=== PATIENT | male | born 1980 | race Caucasian/White ===

== ENCOUNTER 2019-08-11 22:27 | Inpatient (IN) | payer SELFPAY ==
[2019-08-12 00:48] LABS: #Eosinphils 0.5 thou/uL (0.0-0.7); #Lymphocytes 2.1 thou/uL (1.20-3.40); #Monocytes 0.7 thou/uL (0.11-0.59); #Neutrophils 5.4 thou/uL (1.40-6.50); %Basophils 0.3 % (0.0-1.0); %Eosinophils 5.8 % (0.0-10.0); %Monocytes 8.1 % (0.0-10.0); %Neutrophils 61.7 % (42.0-75.0); Hemoglobin 13.5 g/dL (14.0-18.0); Mean Corpuscular HGB CONC 34.8 g/dL (32.0-36.0); Mean Corpuscular Hemoglobin 30.4 pg (27.0-31.0); Mean Corpuscular Volume 87.3 fL (78.0-98.0); Mean Platelet Volume 6.6 fL (7.4-10.4); Platelet Count 170 thou/uL (130-400); RBC Distribution Width 13.7 % (11.5-14.5); Red Blood Cell (RBC) Count 4.45 mill/uL (4.70-6.10); White Blood Cell (WBC) Count 8.7 thou/uL (4.8-10.8)
[2019-08-12 01:09] LABS: ALT (SGPT) 150 U/L (8-55); AST (SGOT) 66 U/L (5-34); Albumin 4.8 g/dL (3.5-5.0); Alkaline Phosphatase 93 U/L (40-110); Anion Gap 13 mmol/L (10-20); BUN (Urea Nitrogen) 17 mg/dL (8.9-20.6); Bilirubin, Total 0.3 mg/dL (0.2-1.2); Calc. Creatinine Clearance 0 mL/min (70-130); Calcium 9.7 mg/dL (7.8-10.44); Carbon Dioxide 29 mmol/L (22-29); Chloride 103 mmol/L (98-107); Estimated GFR-MDRD 88; Globulin 2.9 g/dL (2.4-3.5); Glucose 99 mg/dL (70-105); Potassium 4.1 mmol/L (3.5-5.1); Protein, Total 7.7 g/dL (6.0-8.3); Sodium 141 mmol/L (136-145)
[2019-08-12 01:42] VITALS: BMI 19.5
[2019-08-12] MEDS ORDERED: Ondansetron PF 4 MG/2 ML Vial IVP PRN (02:15)
[2019-08-12] MEDS: Morphine 2 MG/ML SYRINGE SLOW IVP PRN ×4 (02:25→09:05)
--- NOTE | 2019-08-12 07:39 | RAD ---
EXAM: 3 views of the right middle finger HISTORY: Finger pain COMPARISON: None FINDINGS: There is no evidence of acute fracture or dislocation. There is remodeling of the proximal aspect of the middle phalanx which likely represents a displaced healed fracture of the proximal phalanx. Moderate surrounding soft tissue swelling is seen. No degenerative changes are present. No r adiopaque foreign body is seen. IMPRESSION: Remote healed malunion of middle phalanx fracture.
[2019-08-12] MEDS ORDERED: PROPOFOL 200 MG/20 ML VIAL ONE (10:14)
[2019-08-12] MEDS ORDERED: Lidocaine 1% PF 5 ML VIAL ONE (10:14)
[2019-08-12] MEDS ORDERED: Clindamycin/D5W 900 mg/50 ml Premix Bag ONE (12:09)
[2019-08-12] MEDS ORDERED: Bupivacaine PF 0.5% 30 ML VIAL ONE (14:07)
[2019-08-12] MEDS ORDERED: Fentanyl 100 MCG/2 ML VIAL ONE (14:32)
[2019-08-12] MEDS ORDERED: Midazolam HCl 2 mg/2 ml Vial ONE (14:32)
[2019-08-12] MEDS ORDERED: Promethazine HCl 25 MG/ML VIAL SLOW IVP PRN (15:31)
[2019-08-12] MEDS ORDERED: Promethazine HCl 25 MG/ML VIAL IM PRN (15:31)
[2019-08-12] MEDS ORDERED: Ondansetron HCl/PF 4 MG/2 ML Vial IVP PRN (15:31)
--- NOTE | 2019-08-12 15:36 | RAD ---
EXAM: 3 views of the left middle finger HISTORY: Middle phalanx fracture of the middle finger COMPARISON: 08/12/2019 FINDINGS/IMPRESSION: 2 K wires spanning a fracture of the middle phalanx of the middle finger. The al ignment of the fracture has not changed significantly. Moderate diffuse soft tissue swelling is seen.
[2019-08-12] MEDS ORDERED: Acetaminophen/Codeine 30-300mg Tablet PO SCH (17:00)
[2019-08-12 17:37] VITALS: BP 115/75; TEMP 98
--- NOTE | 2019-08-12 22:10 | OP ---
DATE OF PROCEDURE: 08/12/2019 PREOPERATIVE DIAGNOSIS: Displaced fracture of the base of the middle phalanx of the left middle finger. POSTOPERATIVE DIAGNOSIS: Displaced fracture of the base of the middle phalanx of the left middle finger. PROCEDURE: Open reduction internal fixation of the base of the middle phalanx of the left middle finger. ANESTHESIA: General. TECHNIQUE: The patient was given preoperative IV antibiotics, taken to the operating room, placed in supine position. Satisfactory general anesthesia was performed. The left hand and upper extremity were sterilely prepped and draped in the usual fashion. After exsanguination, tourniquet was raised to 250 mmHg at the proximal left arm. A longitudinal incision was made over the dorsum of the PIP joint of the left middle finger, the extensor kyle was opened dorsally ulnar to the midline because the patient had a fracture of this bone approximately seven weeks. There was some scar tissue which had to be sharply removed. The extensor tendon was sharply removed from the underlying bone. Under fluoroscopic visualization, the fracture was identified. There was some healing bone which had to be broken up with osteotome. The fracture was then placed in a more anatomic position and internally fixed using 0.045 K-wires in a crossing fashion. This showed good alignment with good fixation of the base of the middle phalanx. Wound was then irrigated. The extensor kyle was closed using 2-0 Vicryl and the skin was closed using 3-0 Rapide. A total of 10 mL were used as a digital block using Marcaine without epinephrine. Sterile dressing was applied along with an aluminum splint with the MP joint at approximately 70 degrees of flexion and the PIP and DIP joints in full extension. The tourniquet was then released. Patient was awakened, extubated, and transferred to recovery room in stable condition. ESTIMATED BLOOD LOSS: None. COMPLICATIONS: None. Tourniquet time was 31 minutes. Patient will be allowed to be discharged. His discharge medication, Tylenol No. 3 one every 6 hours as needed for pain, #40. Follow up in my office in 2 to 3 weeks. Job ID: [id number]
== END 2019-08-12 18:17 | DRG 514 ==
LOC: ERS 22:27 → SJJU 08-12 01:36
PROVIDERS: ADMIT Orthopaedic Surgery; ATTEND Orthopaedic Surgery
PROC: 0PSV04Z Reposition Left Finger Phalanx with Internal Fixation Device, Open Approach (ICD-10-PCS; principal; 2019-08-12)
DX: S62.623B Displaced fracture of middle phalanx of left middle finger, initial encounter for open fracture (principal); X58.XXXA Exposure to other specified factors, initial encounter; Y92.149 Unspecified place in prison as the place of occurrence of the external cause; Z88.0 Allergy status to penicillin; F17.210 Nicotine dependence, cigarettes, uncomplicated; F31.9 Bipolar disorder, unspecified
CPT/HCPCS: 36415; 76000; 80053; 85025; J2001; J2250; J2270; J2704; J3010; J3490; Q4049; S0020

== ENCOUNTER 2019-09-07 10:39 | Day surgery (SDC) | payer OTHER ==
[~2019-09-07 10:39] MED LIST: Dexamethasone 20 MG/5 ML VIAL ONE; Lidocaine 1% PF 5 ML VIAL ONE; Ondansetron PF 4 MG/2 ML Vial ONE; PROPOFOL 200 MG/20 ML VIAL ONE; ePHEDrine/0.9% NaCl/PF SYRINGE 50 mg/10 ml ONE
[2019-09-07 12:30] LABS: Hemoglobin 13.4 g/dL (14.0-18.0); Mean Corpuscular HGB CONC 34.4 g/dL (32.0-36.0); Mean Corpuscular Hemoglobin 29.4 pg (27.0-31.0); Mean Corpuscular Volume 85.5 fL (78.0-98.0); Mean Platelet Volume 7.3 fL (7.4-10.4); Platelet Count 143 thou/uL (130-400); RBC Distribution Width 12.6 % (11.5-14.5); Red Blood Cell (RBC) Count 4.55 mill/uL (4.70-6.10); White Blood Cell (WBC) Count 7.3 thou/uL (4.8-10.8)
[2019-09-07 12:51] LABS: Anion Gap 14 mmol/L (10-20); BUN (Urea Nitrogen) 15 mg/dL (8.9-20.6); Calc. Creatinine Clearance 105 mL/min (70-130); Calcium 9.3 mg/dL (7.8-10.44); Carbon Dioxide 24 mmol/L (22-29); Chloride 105 mmol/L (98-107); Estimated GFR-MDRD Greater than 90; Glucose 89 mg/dL (70-105); Potassium 4.1 mmol/L (3.5-5.1); Sodium 139 mmol/L (136-145)
[2019-09-07] MEDS ORDERED: Fentanyl 100 MCG/2 ML VIAL ONE (12:54)
[2019-09-07] MEDS ORDERED: Clindamycin/D5W 900 mg/50 ml Premix Bag ONE (13:32)
[2019-09-07] MEDS ORDERED: Bupivacaine PF 0.5% 30 ML VIAL ONE (13:45)
--- NOTE | 2019-09-07 14:41 | RAD ---
Exam: XR Finger(s) Lt Min 2 View HISTORY: ORIF left middle finger. COMPARISON: Intraoperative fluoroscopic images on 08/12/2019 FINDINGS: 2 intraoperative fluoroscopic images of the left middle finger are submitted for interpretation. Ther e are now 4 K wires transfixing the fracture at the base of the middle phalanx middle finger. Soft tissue swelling is again seen about the middle finger at the level of postsurgical changes with subcu taneous emphysema present. No other interval change. Correlation with intraoperative findings is recommended. Fluoroscopy: Time-15 seconds Dose-0.11 mGy. IMPRESSION: Postoperative changes related to internal fixation of fracture base of the middle phalanx middle fing er.
--- NOTE | 2019-09-07 15:48 | OP ---
DATE OF PROCEDURE: 09/07/2019 PREOPERATIVE DIAGNOSIS: The patient is status post open reduction and internal fixation of base of the middle phalanx of the left middle finger with re-displacement. POSTOPERATIVE DIAGNOSIS: The patient is status post open reduction and internal fixation of base of the middle phalanx of the left middle finger with re-displacement. PROCEDURES PERFORMED: Removal of hardware from the left middle finger, reopen reduction and internal fixation of the base of the middle phalanx of the left middle finger. ANESTHESIA: General. DESCRIPTION OF PROCEDURE: The patient was given preoperative IV antibiotics, taken to the operating room, placed in the supine position. Satisfactory general anesthesia was performed. The left upper extremity was sterilely prepped and draped in usual fashion. After exsanguination, tourniquet at the proximal left forearm was raised to 200 mmHg. The patient had a previous longitudinal incision over the dorsum of the left middle finger and this was reopened. Periosteal elevation was performed after the extensor tendon was reopen. Periosteal elevation was performed, and osteotome was used to break up any bone that had healed. There was a fragment of bone in the palmar aspect of the fracture and this was removed with a curette and osteotome. The fracture was manipulated and placed in a much better position and then internally fixed using 4.045 smooth K-wires in a crossing fashion. This was all performed under fluoroscopic visualization. The fracture was in much better position. The wound was then irrigated with normal saline. The extensor tendon was closed using 3-0 Vicryl. Skin was closed using 3-0 Rapide. The pins were cut, bent and left protruding out of the skin. The wound was then covered with Xeroform, 4x4, and tube gauze, and then an aluminium splint was placed to keep the PIP and DIP joint in full extension, the MP joint at approximately 70 degrees. Tourniquet was released. The patient was awakened, extubated, and transferred to recovery room in stable condition. ESTIMATED BLOOD LOSS: None. COMPLICATIONS: None. TOURNIQUET TIME: 34 minutes. DISCHARGE MEDICATIONS: Tramadol 50 mg one every 6 hours as needed for pain for 10 days, #40. Follow up in my office in 1 week. Job ID: [id number]
== END 2019-09-07 16:20 | disposition home or self-care (01) ==
LOC: SDC 10:39 → EEVIPCON 10:39 → SDC 16:20
PROVIDERS: ATTEND Orthopaedic Surgery
PROC: 0PSV04Z Reposition Left Finger Phalanx with Internal Fixation Device, Open Approach (ICD-10-PCS; principal; 2019-09-07)
DX: S62.623A Displaced fracture of middle phalanx of left middle finger, initial encounter for closed fracture (principal); Z79.899 Other long term (current) drug therapy; Z88.0 Allergy status to penicillin; Z88.5 Allergy status to narcotic agent
CPT/HCPCS: 76000; 80048; 85027; J1100; J2001; J2405; J2704; J3010; J3490; Q4049; S0020

== ENCOUNTER 2020-08-20 13:31 | Emergency (ER) | payer SELFPAY ==
[2020-08-20] MEDS ORDERED: Morphine 4 MG/ML VIAL ONE (15:31)
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
--- NOTE | 2020-08-20 15:51 | CT ---
EXAM: CT Thoracic Spine WO Con PROVIDED CLINICAL HISTORY: Back pain status post injury COMPARISON: None FINDINGS: Thoracic alignment appears normal. Vertebral body heights appear preserved. There is no evidence for fracture. There is no paravertebral hematoma. There is no evidence for significant central canal or foraminal narrowing throughout. IMPRESSION: No evidence for an acute osseous abnormality.
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
[2020-08-20] MEDS ORDERED: Ketorolac Tromethamine 30 MG/ML VIAL ONE (16:20)
== END 2020-08-20 16:29 | disposition home or self-care (01) ==
LOC: ERS 13:31
DX: S32.019A Unspecified fracture of first lumbar vertebra, initial encounter for closed fracture (principal); F17.210 Nicotine dependence, cigarettes, uncomplicated; Y04.8XXA Assault by other bodily force, initial encounter
CPT/HCPCS: 70450; 72128; 72131; J1885; J2270

== ENCOUNTER 2023-04-16 15:13 | Inpatient (IN) | payer OTHER, SELFPAY ==
[~2023-04-16 15:13] MED LIST changes: -Dexamethasone 20 MG/5 ML VIAL ONE; +Iopamidol-370 76% 500 ML MDV (1 ML CHARGE) ONE; -Lidocaine 1% PF 5 ML VIAL ONE; -Ondansetron PF 4 MG/2 ML Vial ONE; -PROPOFOL 200 MG/20 ML VIAL ONE; -ePHEDrine/0.9% NaCl/PF SYRINGE 50 mg/10 ml ONE
[2023-04-16] MEDS ORDERED: Cyclobenzaprine 10 MG TAB ONE (15:50)
[2023-04-16] MEDS ORDERED: HYDROcodone/Acetaminophen 10/325 mg Tablet ONE (17:00)
[2023-04-16] MEDS ORDERED: Ketorolac Tromethamine 30 MG/ML VIAL ONE (17:23)
[2023-04-16 17:51] LABS: #Eosinphils 0.2 thou/uL (0.0-0.7); #Monocytes 0.7 thou/uL (0.11-0.59); #Neutrophils 4.9 thou/uL (1.40-6.50); %Basophils 0.3 % (0.0-1.0); %Eosinophils 2.5 % (0.0-10.0); %Lymphocytes 20.9 % (21.0-51.0); %Monocytes 9.1 % (0.0-10.0); %Neutrophils 66.8 % (42.0-75.0); Hemoglobin 14.3 g/dL (14.0-18.0); Mean Corpuscular Volume 82.2 fl (78.0-98.0); Mean Platelet Volume 8.5 fL (7.4-10.4); Platelet Count 285 10x3/uL (130-400); RBC Distribution Width 13.4 % (11.5-14.5); Red Blood Cell (RBC) Count 5.11 mill/uL (4.70-6.10); White Blood Cell (WBC) Count 7.3 10x3/uL (4.8-10.8)
[2023-04-16] MEDS ORDERED: Ipratropium/Albuterol 3 ML NEB NEB PRN (18:00)
[2023-04-16] MEDS ORDERED: Morphine 2 MG/ML VIAL SLOW IVP PRN (18:00)
[2023-04-16] MEDS ORDERED: Ondansetron PF 4 MG/2 ML Vial IVP PRN (18:00)
[2023-04-16] MEDS ORDERED: Cyclobenzaprine 10 MG TAB PO PRN (18:04)
[2023-04-16] MEDS ORDERED: traMADol HCl 50 MG TAB PO PRN (18:04)
[2023-04-16 18:15] LABS: ALT (SGPT) 16 U/L (8-55); AST (SGOT) 19 U/L (5-34); Albumin 4.1 g/dL (3.5-5.0); Alkaline Phosphatase 115 U/L (40-110); Anion Gap 13 mmol/L (10-20); BUN (Urea Nitrogen) 13 mg/dL (8.9-20.6); Bilirubin, Total 0.5 mg/dL (0.2-1.2); Calc. Creatinine Clearance 0 mL/min (70-130); Calcium 9.8 mg/dL (7.8-10.44); Carbon Dioxide 28 mmol/L (22-29); Chloride 101 mmol/L (98-107); Estimated GFR 99; Globulin 3.2 g/dL (2.4-3.5); Glucose 85 mg/dL (70-105); Protein, Total 7.3 g/dL (6.0-8.3); Sodium 138 mmol/L (136-145)
[2023-04-16] MEDS ORDERED: Ketorolac Tromethamine 30 MG/ML VIAL IVP SCH (18:15)
[2023-04-16 19:40] VITALS: BMI 17.4
[2023-04-16] MEDS: Gabapentin 300 MG CAP PO SCH (20:34)
[2023-04-16] MEDS: Famotidine 20 MG TAB PO SCH (20:34)
[2023-04-16] MEDS: Senokot S 8.6-50 MG TAB PO SCH (20:34)
[2023-04-16] MEDS: Sodium Chloride 0.9% 1,000 ML IV SCH (20:35)
[2023-04-16] MEDS: traMADol HCl 50 MG TAB PO SCH (23:24)
[2023-04-16] MEDS: Acetaminophen 500 MG TAB PO SCH (23:24)
[2023-04-16] MEDS: Ketorolac Tromethamine 30 MG/ML VIAL IVP SCH (23:25)
[2023-04-16] MEDS: Ipratropium/Albuterol 3 ML NEB NEB SCH (23:25)
[2023-04-17] MEDS: Ipratropium/Albuterol 3 ML NEB NEB SCH ×5 (01:27→22:19)
[2023-04-17 05:05] LABS: Amphetamine Detected (NotDetected); Barbiturates Screen Not Detected (NotDetected); Benzodiazepine Screen Not Detected (NotDetected); Cocaine Metabolite Screen Not Detected (NotDetected); Methadone Not Detected (NotDetected); Methamphetamine Detected (NotDetected); Opiate Screen Detected (NotDetected); Oxycodone Screen Not Detected (NotDetected); Phencyclidine (PCP) Not Detected (NotDetected); THC/Cannabinoid Screen Not Detected (NotDetected); Tricyclic Screen Detected (NotDetected)
[2023-04-17] MEDS: Ketorolac Tromethamine 30 MG/ML VIAL IVP SCH ×3 (05:39→17:53)
[2023-04-17] MEDS: Sodium Chloride 0.9% 1,000 ML IV SCH (05:40)
[2023-04-17] MEDS: traMADol HCl 50 MG TAB PO SCH ×3 (05:40→17:53)
[2023-04-17] MEDS: Acetaminophen 500 MG TAB PO SCH ×3 (05:40→17:53)
[2023-04-17 06:24] LABS: #Eosinphils 0.2 thou/uL (0.0-0.7); #Monocytes 0.6 thou/uL (0.11-0.59); #Neutrophils 2.7 thou/uL (1.40-6.50); %Basophils 0.2 % (0.0-1.0); %Eosinophils 3.6 % (0.0-10.0); %Lymphocytes 33.8 % (21.0-51.0); %Monocytes 10.4 % (0.0-10.0); %Neutrophils 51.4 % (42.0-75.0); Hemoglobin 12.3 g/dL (14.0-18.0); Mean Corpuscular HGB CONC 33.2 g/dL (32.0-36.0); Mean Corpuscular Hemoglobin 28.1 pg (27.0-31.0); Mean Corpuscular Volume 84.5 fl (78.0-98.0); Mean Platelet Volume 8.5 fL (7.4-10.4); Platelet Count 245 10x3/uL (130-400); RBC Distribution Width 13.8 % (11.5-14.5); Red Blood Cell (RBC) Count 4.38 mill/uL (4.70-6.10); White Blood Cell (WBC) Count 5.3 10x3/uL (4.8-10.8)
[2023-04-17 06:41] LABS: INR-International Normal Ratio 0.9; Prothrombin Time 12.7 sec (12.0-14.7)
[2023-04-17 06:42] LABS: PTT 32.7 sec (22.9-36.1)
[2023-04-17 06:46] LABS: Anion Gap 11 mmol/L (10-20); BUN (Urea Nitrogen) 20 mg/dL (8.9-20.6); Calc. Creatinine Clearance 71 mL/min (70-130); Calcium 8.8 mg/dL (7.8-10.44); Carbon Dioxide 26 mmol/L (22-29); Chloride 104 mmol/L (98-107); Estimated GFR 93; Glucose 90 mg/dL (70-105); Potassium 3.8 mmol/L (3.5-5.1); Sodium 137 mmol/L (136-145)
[2023-04-17] MEDS: Senokot S 8.6-50 MG TAB PO SCH ×2 (09:02→19:51)
[2023-04-17] MEDS: Famotidine 20 MG TAB PO SCH ×2 (09:02→19:51)
[2023-04-17] MEDS: Gabapentin 300 MG CAP PO SCH ×3 (09:02→19:51)
[2023-04-18] MEDS: Ketorolac Tromethamine 30 MG/ML VIAL IVP SCH ×3 (00:36→11:37)
[2023-04-18] MEDS: traMADol HCl 50 MG TAB PO SCH ×3 (00:36→11:38)
[2023-04-18] MEDS: Acetaminophen 500 MG TAB PO SCH ×3 (00:36→11:38)
[2023-04-18] MEDS: Ipratropium/Albuterol 3 ML NEB NEB SCH ×2 (07:27→12:09)
[2023-04-18 08:30] VITALS: BP 127/75; TEMP 97.6
[2023-04-18] MEDS: Gabapentin 300 MG CAP PO SCH (09:10)
[2023-04-18] MEDS: Senokot S 8.6-50 MG TAB PO SCH (09:10)
[2023-04-18] MEDS: Famotidine 20 MG TAB PO SCH (09:10)
== END 2023-04-18 12:12 | disposition home or self-care (01) | DRG 200 ==
LOC: ERS 15:13 → SURG A 19:24
PROVIDERS: ADMIT Specialist; ATTEND Specialist
DX: S27.1XXA Traumatic hemothorax, initial encounter (principal); J98.11 Atelectasis; S22.42XA Multiple fractures of ribs, left side, initial encounter for closed fracture; F17.210 Nicotine dependence, cigarettes, uncomplicated; M54.9 Dorsalgia, unspecified; F41.9 Anxiety disorder, unspecified; F31.9 Bipolar disorder, unspecified; F15.10 Other stimulant abuse, uncomplicated; V86.56XA Driver of dirt bike or motor/cross bike injured in nontraffic accident, initial encounter; Z88.6 Allergy status to analgesic agent; Z88.0 Allergy status to penicillin
CPT/HCPCS: 36416; 71260; 74177; 80048; 80053; 80306; 85025; 85610; 85730; 94640; 96374; J1885; J2272; J7050; J7620; Q9967

== ENCOUNTER 2023-04-24 17:37 | Emergency (ER) | payer SELFPAY ==
[2023-04-24] MEDS ORDERED: CEFAZOLIN 2 GM VIAL ONE (17:39)
[2023-04-24] MEDS ORDERED: Boostrix 0.5 ML (Tdap) VIAL (>/=7 yrs of age) ONE (17:39)
[2023-04-24] MEDS ORDERED: fentaNYL 50 mcg/mL 1 mL Vial ONE ×2 (17:44→19:37)
[2023-04-24 17:59] LABS: #Eosinphils 0.4 thou/uL (0.0-0.7); #Monocytes 0.5 thou/uL (0.11-0.59); %Basophils 0.4 % (0.0-1.0); %Eosinophils 5.3 % (0.0-10.0); %Lymphocytes 16.2 % (21.0-51.0); %Monocytes 6.1 % (0.0-10.0); %Neutrophils 71.8 % (42.0-75.0); Hemoglobin 11.5 g/dL (14.0-18.0); Mean Corpuscular HGB CONC 33.8 g/dL (32.0-36.0); Mean Corpuscular Hemoglobin 28.5 pg (27.0-31.0); Mean Corpuscular Volume 84.2 fl (78.0-98.0); Mean Platelet Volume 8.3 fL (7.4-10.4); Platelet Count 227 10x3/uL (130-400); RBC Distribution Width 13.6 % (11.5-14.5); Red Blood Cell (RBC) Count 4.04 mill/uL (4.70-6.10); White Blood Cell (WBC) Count 8.4 10x3/uL (4.8-10.8)
[2023-04-24 18:13] LABS: Prothrombin Time 14.1 sec (12.0-14.7)
[2023-04-24 18:14] LABS: PTT 35.9 sec (22.9-36.1)
[2023-04-24 18:22] LABS: ALT (SGPT) 32 U/L (8-55); AST (SGOT) 20 U/L (5-34); Albumin 3.8 g/dL (3.5-5.0); Alkaline Phosphatase 121 U/L (40-110); Anion Gap 11 mmol/L (10-20); BUN (Urea Nitrogen) 15 mg/dL (8.9-20.6); Bilirubin, Total 0.5 mg/dL (0.2-1.2); Calc. Creatinine Clearance 0 mL/min (70-130); Carbon Dioxide 22 mmol/L (22-29); Chloride 108 mmol/L (98-107); Estimated GFR 111; Globulin 2.9 g/dL (2.4-3.5); Glucose 114 mg/dL (70-105); Potassium 3.4 mmol/L (3.5-5.1); Protein, Total 6.7 g/dL (6.0-8.3); Sodium 138 mmol/L (136-145)
[2023-04-24] MEDS ORDERED: Lidocaine 1% w/Epinephrine 1:100K 20 ML VIAL ONE (18:35)
[2023-04-24] MEDS ORDERED: Midazolam HCl 5 mg/ml Vial ONE (20:31)
[2023-04-24] MEDS ORDERED: Bacitracin 1 PK ONE (23:59)
== END 2023-04-25 00:10 | disposition home or self-care (01) ==
LOC: ERS 17:37
DX: S71.142A Puncture wound with foreign body, left thigh, initial encounter (principal); Z23 Encounter for immunization; F17.210 Nicotine dependence, cigarettes, uncomplicated; W34.00XA Accidental discharge from unspecified firearms or gun, initial encounter
CPT/HCPCS: 10120; 36415; 80053; 83605; 85025; 85610; 85730; 86850; 86900; 86901; 90471; 90715; 96365; 96366; 96375; J2250; J3010

== ENCOUNTER 2023-04-25 22:31 | Emergency (ER) | payer OTHER, SELFPAY ==
[2023-04-25 22:59] LABS: #Eosinphils 0.2 thou/uL (0.0-0.7); #Monocytes 0.6 thou/uL (0.11-0.59); %Basophils 0.1 % (0.0-1.0); %Eosinophils 1.4 % (0.0-10.0); %Lymphocytes 5.1 % (21.0-51.0); %Monocytes 4.1 % (0.0-10.0); %Neutrophils 88.9 % (42.0-75.0); Hematocrit 32.6 % (42.0-52.0); Hemoglobin 11.2 g/dL (14.0-18.0); Mean Corpuscular HGB CONC 34.4 g/dL (32.0-36.0); Mean Corpuscular Hemoglobin 28.4 pg (27.0-31.0); Mean Corpuscular Volume 82.5 fl (78.0-98.0); Mean Platelet Volume 8.7 fL (7.4-10.4); Platelet Count 258 10x3/uL (130-400); RBC Distribution Width 13.5 % (11.5-14.5); Red Blood Cell (RBC) Count 3.95 mill/uL (4.70-6.10); White Blood Cell (WBC) Count 14.6 10x3/uL (4.8-10.8)
[2023-04-25 23:14] LABS: Prothrombin Time 13.9 sec (12.0-14.7)
[2023-04-25 23:15] LABS: PTT 28.7 sec (22.9-36.1)
[2023-04-25 23:23] LABS: Anion Gap 12 mmol/L (10-20); BUN (Urea Nitrogen) 13 mg/dL (8.9-20.6); Calc. Creatinine Clearance 0 mL/min (70-130); Carbon Dioxide 23 mmol/L (22-29); Chloride 112 mmol/L (98-107); Potassium 3.2 mmol/L (3.5-5.1); Sodium 144 mmol/L (136-145)
[2023-04-25 23:24] LABS: ALT (SGPT) 25 U/L (8-55); AST (SGOT) 30 U/L (5-34); Albumin 3.9 g/dL (3.5-5.0); Alkaline Phosphatase 128 U/L (40-110); Bilirubin, Total 0.5 mg/dL (0.2-1.2); CK (CPK) 1050 U/L (30-200); Calcium 8.9 mg/dL (7.8-10.44); Estimated GFR 109; Globulin 2.7 g/dL (2.4-3.5); Glucose 93 mg/dL (70-105); Protein, Total 6.6 g/dL (6.0-8.3)
[2023-04-26 01:07] LABS: Bilirubin Negative (Negative); Blood, Urine Negative (Negative); CAUTI Indications for Culture Alt mental st,lethar; Clarity Clear (Clear); Glucose, Urine (Dipstick) Normal (Negative); Ketone, Urine Negative (Negative); Leukocyte Negative Leu/uL (Negative); Nitrite Negative (Negative); Protein, Urine (Dipstick) 10 mg/dL (Neg-Trace); RBC/HPF 0-3 HPF (0-3); Squamous Epithelial None Seen HPF (0-3); Urobilinogen Normal mg/dL (Less than 2); WBC/HPF 0-3 HPF (0-3)
[2023-04-26 01:09] LABS: Bacteria/HPF 1+ HPF (None Seen); Sperm/HPF Rare HPF (None Seen)
[2023-04-26 01:10] LABS: Urine Culture Reflex No No
[2023-04-26] MEDS ORDERED: Lorazepam 1 MG TAB ONE (01:37)
[2023-04-26] MEDS ORDERED: Azithromycin 500 MG VIAL ONE (01:56)
== END 2023-04-26 02:10 | disposition home or self-care (01) ==
LOC: ERS 22:31
DX: S22.42XA Multiple fractures of ribs, left side, initial encounter for closed fracture (principal); F14.90 Cocaine use, unspecified, uncomplicated; V89.2XXA Person injured in unspecified motor-vehicle accident, traffic, initial encounter
CPT/HCPCS: 70450; 71045; 71260; 72125; 74177; 80053; 81001; 82550; 85025; 85610; 85730; 86850; 86900; 86901; 93005; G0390; J0456; Q9967

== ENCOUNTER 2023-06-06 08:19 | Day surgery (SDC) | payer OTHER, SELFPAY ==
[2023-06-06 10:04] LABS: #Eosinphils 0.1 thou/uL (0.0-0.7); #Monocytes 0.5 thou/uL (0.11-0.59); #Neutrophils 4.9 thou/uL (1.40-6.50); %Basophils 0.3 % (0.0-1.0); %Eosinophils 1.6 % (0.0-10.0); %Lymphocytes 14.4 % (21.0-51.0); %Monocytes 7.5 % (0.0-10.0); %Neutrophils 75.7 % (42.0-75.0); Hematocrit 41.2 % (42.0-52.0); Hemoglobin 14.4 g/dL (14.0-18.0); Mean Corpuscular Hemoglobin 29.4 pg (27.0-31.0); Mean Corpuscular Volume 84.3 fl (78.0-98.0); Mean Platelet Volume 8.6 fL (7.4-10.4); Platelet Count 209 10x3/uL (130-400); RBC Distribution Width 14.6 % (11.5-14.5); Red Blood Cell (RBC) Count 4.89 mill/uL (4.70-6.10); White Blood Cell (WBC) Count 6.4 10x3/uL (4.8-10.8)
[2023-06-06 10:22] LABS: Amphetamine Not Detected (NotDetected); Barbiturates Screen Not Detected (NotDetected); Benzodiazepine Screen Not Detected (NotDetected); Cocaine Metabolite Screen Not Detected (NotDetected); Methadone Not Detected (NotDetected); Methamphetamine Not Detected (NotDetected); Opiate Screen Not Detected (NotDetected); Oxycodone Screen Not Detected (NotDetected); Phencyclidine (PCP) Not Detected (NotDetected); THC/Cannabinoid Screen Not Detected (NotDetected); Tricyclic Screen Not Detected (NotDetected)
[2023-06-06 10:29] LABS: ALT (SGPT) 28 U/L (8-55); AST (SGOT) 19 U/L (5-34); Albumin 5.2 g/dL (3.5-5.0); Alkaline Phosphatase 113 U/L (40-110); Anion Gap 17 mmol/L (10-20); BUN (Urea Nitrogen) 8 mg/dL (8.9-20.6); Bilirubin, Total 0.6 mg/dL (0.2-1.2); Calc. Creatinine Clearance 0 mL/min (70-130); Calcium 10.3 mg/dL (7.8-10.44); Carbon Dioxide 25 mmol/L (22-29); Chloride 104 mmol/L (98-107); Estimated GFR 112; Globulin 2.9 g/dL (2.4-3.5); Glucose 106 mg/dL (70-105); Potassium 4.5 mmol/L (3.5-5.1); Protein, Total 8.1 g/dL (6.0-8.3); Sodium 141 mmol/L (136-145)
[2023-06-06 10:30] LABS: Acetaminophen Less than 10 mcg/mL (10.0-30.0); Alcohol Less than 10.0 mg/dL (Less than 10); Salicylate Less than 8.0 mg/dL (15.0-30.0)
[2023-06-06] MEDS ORDERED: Succinylcholine Chloride 100 MG/5 ML SYRINGE FS ONE (11:53)
[2023-06-06] MEDS ORDERED: Ondansetron PF 4 MG/2 ML Vial ONE (11:53)
[2023-06-06] MEDS ORDERED: PROPOFOL 200 MG/20 ML VIAL ONE (11:53)
[2023-06-06] MEDS ORDERED: Lidocaine 1% PF 5 ML VIAL ONE (11:53)
== END 2023-06-06 13:40 | disposition home or self-care (01) ==
LOC: ERS 08:19 → EEVIPCON 08:19 → SDC 11:34
PROVIDERS: ATTEND Internal Medicine
PROC: 0DJ08ZZ Inspection of Upper Intestinal Tract, Via Natural or Artificial Opening Endoscopic (ICD-10-PCS; principal; 2023-06-06)
DX: T18.108A Unspecified foreign body in esophagus causing other injury, initial encounter (principal); K22.10 Ulcer of esophagus without bleeding; K64.4 Residual hemorrhoidal skin tags; F41.9 Anxiety disorder, unspecified; F31.9 Bipolar disorder, unspecified; R45.851 Suicidal ideations; F15.10 Other stimulant abuse, uncomplicated; Z88.0 Allergy status to penicillin; Z88.5 Allergy status to narcotic agent; Y83.1 Surgical operation with implant of artificial internal device as the cause of abnormal reaction of the patient, or of later complication, without mention of misadventure at the time of the procedure
CPT/HCPCS: 36415; 71045; 74018; 80053; 80306; 80307; 85025; J2405; J2704

== ENCOUNTER 2023-06-08 13:47 | Observation (INO) | payer OTHER, SELFPAY ==
[2023-06-08 14:13] LABS: #Monocytes 0.4 thou/uL (0.11-0.59); #Neutrophils 3.9 thou/uL (1.40-6.50); %Basophils 0.2 % (0.0-1.0); %Eosinophils 0.6 % (0.0-10.0); %Lymphocytes 16.6 % (21.0-51.0); %Monocytes 7.2 % (0.0-10.0); %Neutrophils 74.8 % (42.0-75.0); Hematocrit 37.8 % (42.0-52.0); Hemoglobin 13.1 g/dL (14.0-18.0); Mean Corpuscular HGB CONC 34.7 g/dL (32.0-36.0); Mean Corpuscular Hemoglobin 29.2 pg (27.0-31.0); Mean Corpuscular Volume 84.4 fl (78.0-98.0); Mean Platelet Volume 8.9 fL (7.4-10.4); Platelet Count 192 10x3/uL (130-400); RBC Distribution Width 14.6 % (11.5-14.5); Red Blood Cell (RBC) Count 4.48 mill/uL (4.70-6.10); White Blood Cell (WBC) Count 5.2 10x3/uL (4.8-10.8)
[2023-06-08 14:39] LABS: Acetaminophen Less than 10 mcg/mL (10.0-30.0); Alcohol Less than 10.0 mg/dL (Less than 10); Salicylate Less than 8.0 mg/dL (15.0-30.0)
[2023-06-08 14:40] LABS: ALT (SGPT) 19 U/L (8-55); AST (SGOT) 18 U/L (5-34); Albumin 4.5 g/dL (3.5-5.0); Alcohol Less than 10.0 mg/dL (Less than 10); Alkaline Phosphatase 107 U/L (40-110); Anion Gap 13 mmol/L (10-20); BUN (Urea Nitrogen) 18 mg/dL (8.9-20.6); Bilirubin, Total 0.6 mg/dL (0.2-1.2); Calc. Creatinine Clearance 0 mL/min (70-130); Calcium 9.4 mg/dL (7.8-10.44); Carbon Dioxide 22 mmol/L (22-29); Chloride 104 mmol/L (98-107); Estimated GFR 107; Globulin 2.5 g/dL (2.4-3.5); Glucose 89 mg/dL (70-105); Sodium 135 mmol/L (136-145)
[2023-06-08 14:51] LABS: Bacteria/HPF None Seen HPF (None Seen); Bilirubin Negative (Negative); Blood, Urine Negative (Negative); CAUTI Indications for Culture Alt mental st,lethar; Clarity Clear (Clear); Glucose, Urine (Dipstick) Normal (Negative); Ketone, Urine Trace mg/dL (Negative); Leukocyte Negative Leu/uL (Negative); Nitrite Negative (Negative); Protein, Urine (Dipstick) Negative (Neg-Trace); Specific Gravity, Urine 1.024 (1.002-1.036); Squamous Epithelial None Seen HPF (0-3); Urobilinogen Normal mg/dL (Less than 2)
[2023-06-08 14:52] LABS: Amphetamine Not Detected (NotDetected); Barbiturates Screen Not Detected (NotDetected); Benzodiazepine Screen Not Detected (NotDetected); Cocaine Metabolite Screen Not Detected (NotDetected); Methadone Not Detected (NotDetected); Methamphetamine Not Detected (NotDetected); Opiate Screen Not Detected (NotDetected); Oxycodone Screen Not Detected (NotDetected); Phencyclidine (PCP) Not Detected (NotDetected); THC/Cannabinoid Screen Not Detected (NotDetected); Tricyclic Screen Not Detected (NotDetected); Urine Culture Reflex No No
[2023-06-08 15:16] LABS: SARS-CoV-2 NAA Rapid Test Not Detected (NotDetected)
[2023-06-09] MEDS ORDERED: Iopamidol-370 76% 500 ML MDV (1 ML CHARGE) ONE (09:23)
[2023-06-09] MEDS ORDERED: Ondansetron ODT 4 MG TAB PO PRN (11:33)
[2023-06-09 14:15] VITALS: BMI 18.6
[2023-06-09] MEDS: Acetaminophen 325 MG TAB PO PRN (20:33)
[2023-06-09] MEDS: Metamucil PACK PO SCH (20:34)
[2023-06-10 06:43] LABS: #Eosinphils 0.2 thou/uL (0.0-0.7); #Monocytes 0.7 thou/uL (0.11-0.59); #Neutrophils 4.9 thou/uL (1.40-6.50); %Basophils 0.3 % (0.0-1.0); %Eosinophils 2.3 % (0.0-10.0); %Monocytes 9.3 % (0.0-10.0); %Neutrophils 66.7 % (42.0-75.0); Hematocrit 36.6 % (42.0-52.0); Hemoglobin 12.9 g/dL (14.0-18.0); Mean Corpuscular HGB CONC 35.2 g/dL (32.0-36.0); Mean Corpuscular Hemoglobin 29.5 pg (27.0-31.0); Mean Corpuscular Volume 83.8 fl (78.0-98.0); Mean Platelet Volume 8.7 fL (7.4-10.4); Platelet Count 210 10x3/uL (130-400); RBC Distribution Width 14.3 % (11.5-14.5); Red Blood Cell (RBC) Count 4.37 mill/uL (4.70-6.10); White Blood Cell (WBC) Count 7.3 10x3/uL (4.8-10.8)
[2023-06-10 07:17] LABS: ALT (SGPT) 13 U/L (8-55); AST (SGOT) 11 U/L (5-34); Albumin 4.1 g/dL (3.5-5.0); Alkaline Phosphatase 116 U/L (40-110); Anion Gap 12 mmol/L (10-20); BUN (Urea Nitrogen) 20 mg/dL (8.9-20.6); Bilirubin, Total 0.4 mg/dL (0.2-1.2); Calc. Creatinine Clearance 99 mL/min (70-130); Calcium 8.6 mg/dL (7.8-10.44); Carbon Dioxide 26 mmol/L (22-29); Chloride 105 mmol/L (98-107); Estimated GFR 114; Globulin 2.3 g/dL (2.4-3.5); Glucose 116 mg/dL (70-105); Potassium 3.9 mmol/L (3.5-5.1); Protein, Total 6.4 g/dL (6.0-8.3); Sodium 139 mmol/L (136-145)
[2023-06-10] MEDS: Metamucil PACK PO SCH (08:50)
[2023-06-10] MEDS: Acetaminophen 325 MG TAB PO PRN (08:51)
[2023-06-10 19:07] VITALS: BP 122/79; TEMP 98.8
== END 2023-06-10 18:41 ==
LOC: EEVIPCON 13:47 → ERS 13:47 → ERHOLD 06-09 09:19 → T4-B 06-09 13:31
PROVIDERS: ADMIT Emergency Medicine; ATTEND Emergency Medicine
DX: T18.2XXA Foreign body in stomach, initial encounter (principal); G93.41 Metabolic encephalopathy; F20.9 Schizophrenia, unspecified; R33.9 Retention of urine, unspecified; R94.6 Abnormal results of thyroid function studies; F43.10 Post-traumatic stress disorder, unspecified; F31.9 Bipolar disorder, unspecified; Z88.0 Allergy status to penicillin; Z88.5 Allergy status to narcotic agent; Z79.899 Other long term (current) drug therapy
CPT/HCPCS: 36415; 51701; 70360; 70450; 71045; 74018; 74022; 74177; 80053; 80306; 80307; 81001; 84238; 84439; 84443; 84480; 85025; 93005; G0378; Q9967